=== PATIENT | female | born 1990 | race Caucasian/White ===

== ENCOUNTER 2018-04-20 19:31 | Emergency (ER) | payer OTHER ==
[2018-04-20] MEDS ORDERED: Ketorolac 30 MG/ML SDV IVPUSH ONE (19:48)
[2018-04-20] MEDS ORDERED: Sodium Chloride 0.9% 1,000 ML IV ONE (19:48)
[2018-04-20] MEDS ORDERED: Sodium Chloride 0.9% 10 ML Syringe FLUSH PRN (19:48)
[2018-04-20] MEDS ORDERED: Sodium Chloride 0.9% 2.5 ML Syringe FLUSH PRN (19:48)
--- NOTE | 2018-04-20 19:59 | EDM.PDOC ---
ED HPI GENERAL MEDICAL PROBLEM - General Chief Complaint: Flank Pain Stated Complaint: PT HAS STOMACH PAINS Time Seen by Provider: 04/20/18 19:47 - History of Present Illness INITIAL COMMENTS - FREE TEXT/NARRATIVE: HISTORY AND PHYSICAL: History of present illness: Patient is a 27-year-old white female presents concern of right flank pain this radiates to her right groin is been no fever chills nausea vomiting states she had similar episodes in the past with urinary tract infection without dysuria frequency or hesitancy she denies history of urolithiasis Review of systems: As per history of present illness and below otherwise all systems reviewed and negative. Past medical history: As per history of present illness and as reviewed below otherwise noncontributory. Surgical history: As per history of present illness and as reviewed below otherwise noncontributory. Social history: No reported history of drug or alcohol abuse. Family history: As per history of present illness and as reviewed below otherwise noncontributory. Physical exam: HEENT: Atraumatic, normocephalic, pupils reactive, negative for conjunctival pallor or scleral icterus, mucous membranes moist, throat clear, neck supple, nontender, trachea midline. Lungs: Clear to auscultation, breath sounds equal bilaterally, chest nontender. Heart: S1S2, regular, negative for clicks, rubs, or JVD. Abdomen: Soft, nondistended, nontender. Negative for masses or hepatosplenomegaly. Mild right-sided costovertebral tenderness. Pelvis: Stable nontender. Genitourinary: Deferred. Rectal: Deferred. Extremities: Atraumatic, negative for cords or calf pain. Neurovascular unremarkable. Neuro: Awake, alert, oriented. Cranial nerves II through XII unremarkable. Cerebellum unremarkable. Motor and sensory unremarkable throughout. Exam nonfocal. Diagnostics: CBC CMP UA hCG urine culture CT abdomen and pelvis Therapeutics: Normal saline 1 L bolus Toradol 30 mg IV Impression: #1 right flank pain Definitive disposition and diagnosis as appropriate pending reevaluation and review of above. - Related Data Allergies Allergy/AdvReac Type Severity Reaction Status Date / Time No Known Allergies Allergy Verified 04/20/18 20:15 Home Meds: Home Meds Pantoprazole Sodium 80 mg PO DAILY 04/20/18 [History] ED ROS GENERAL - Review of Systems Review Of Systems: ROS reveals no pertinent complaints other than HPI. ED EXAM, GENERAL - Physical Exam Exam: See Below (dictation) Course - Vital Signs Last Recorded V/S: Last Vital Signs Temp 36.6 C 04/20/18 19:31 Pulse 89 04/20/18 19:31 Resp 18 04/20/18 19:31 BP 128/79 04/20/18 19:31 Pulse Ox 98 04/20/18 19:31 - Orders/Labs/Meds Orders: Active Orders 24 hr Category Date Time Status Abdomen Pelvis wo Cont [CT] Stat Exams 04/20/18 19:48 Taken CULTURE URINE [RM] Stat Lab 04/20/18 19:49 Ordered UA W/MICROSCOPIC [URIN] Stat Lab 04/20/18 19:49 Ordered Sodium Chloride 0.9% [Saline Flush] Med 04/20/18 19:48 Active 10 ml FLUSH ASDIRECTED PRN Sodium Chloride 0.9% [Saline Flush] Med 04/20/18 19:48 Active 2.5 ml FLUSH ASDIRECTED PRN Saline Lock Insert [OM.PC] Stat Oth 04/20/18 19:47 Ordered Medication Orders Sodium Chloride (Saline Flush) 10 ml FLUSH ASDIRECTED PRN PRN Reason: Keep Vein Open Sodium Chloride (Saline Flush) 2.5 ml FLUSH ASDIRECTED PRN PRN Reason: Keep Vein Open Labs: Laboratory Tests 04/20/18 04/20/18 04/20/18 Range/Units 19:49 20:00 20:00 WBC 9.45 (4.0-11.0) K/uL RBC 4.66 (4.30-5.90) M/uL Hgb 14.0 (12.0-16.0) g/dL Hct 42.3 (36.0-46.0) % MCV 90.8 (80.0-98.0) fL MCH 30.0 (27.0-32.0) pg MCHC 33.1 (31.0-37.0) g/dL RDW Std Deviation 41.3 (28.0-62.0) fl RDW Coeff of Sarah 13 (11.0-15.0) % Plt Count 257 (150-400) K/uL MPV 10.20 (7.40-12.00) fL Neut % (Auto) 61.1 (48.0-80.0) % Lymph % (Auto) 29.7 (16.0-40.0) % [place] % (Auto) 6.9 (0.0-15.0) % Eos % (Auto) 2.1 (0.0-7.0) % Baso % (Auto) 0.2 (0.0-1.5) % Neut # (Auto) 5.8 H (1.4-5.7) K/uL Lymph # (Auto) 2.8 H (0.6-2.4) K/uL [place] # (Auto) 0.7 (0.0-0.8) K/uL Eos # (Auto) 0.2 (0.0-0.7) K/uL Baso # (Auto) 0.0 (0.0-0.1) K/uL Nucleated RBC % 0.0 /100WBC Nucleated RBCs # 0 K/uL Sodium 139 (136-145) mmol/L Potassium 3.4 L (3.5-5.1) mmol/L Chloride 105 (98-107) mmol/L Carbon Dioxide 29.6 (21.0-32.0) mmol/L BUN 7 (7.0-18.0) mg/dL Creatinine 0.8 (0.6-1.0) mg/dL Est Cr Clr Drug Dosing 74.53 mL/min Estimated GFR (MDRD) > 60.0 ml/min Glucose 92 (74-106) mg/dL Calcium 9.1 (8.5-10.1) mg/dL Total Bilirubin 0.3 (0.2-1.0) mg/dL AST 18 (15-37) IU/L ALT 35 (14-63) IU/L Alkaline Phosphatase 59 (46-116) U/L Total Protein 7.9 (6.4-8.2) g/dL Albumin 4.3 (3.4-5.0) g/dL Globulin 3.6 H (2.0-3.5) g/dL Albumin/Globulin Ratio 1.2 L (1.3-2.8) HCG, Qual (NEG) Urine Color YELLOW Urine Appearance HAZY Urine pH 6.0 (5.0-8.0) Ur Specific [place] >= 1.030 (1.001-1.035) Urine Protein NEGATIVE (NEGATIVE) mg/dL Urine Glucose (UA) NEGATIVE (NEGATIVE) mg/dL Urine Ketones NEGATIVE (NEGATIVE) mg/dL Urine Occult Blood TRACE-INTACT (NEGATIVE) Urine Nitrite NEGATIVE (NEGATIVE) Urine Bilirubin NEGATIVE (NEGATIVE) Urine Urobilinogen 0.2 (<2.0) EU/dL Ur Leukocyte Esterase NEGATIVE (NEGATIVE) Urine RBC 0-2 (0-2/HPF) Urine WBC 0-4 (0-5/HPF) Ur Epithelial Cells MODERATE (NONE-FEW) Urine Bacteria FEW (NEGATIVE) Urine Mucus LIGHT (NONE-MOD) 04/20/18 Range/Units 20:00 WBC (4.0-11.0) K/uL RBC (4.30-5.90) M/uL Hgb (12.0-16.0) g/dL Hct (36.0-46.0) % MCV (80.0-98.0) fL MCH (27.0-32.0) pg MCHC (31.0-37.0) g/dL RDW Std Deviation (28.0-62.0) fl RDW Coeff of Sarah (11.0-15.0) % Plt Count (150-400) K/uL MPV (7.40-12.00) fL Neut % (Auto) (48.0-80.0) % Lymph % (Auto) (16.0-40.0) % [place] % (Auto) (0.0-15.0) % Eos % (Auto) (0.0-7.0) % Baso % (Auto) (0.0-1.5) % Neut # (Auto) (1.4-5.7) K/uL Lymph # (Auto) (0.6-2.4) K/uL [place] # (Auto) (0.0-0.8) K/uL Eos # (Auto) (0.0-0.7) K/uL Baso # (Auto) (0.0-0.1) K/uL Nucleated RBC % /100WBC Nucleated RBCs # K/uL Sodium (136-145) mmol/L Potassium (3.5-5.1) mmol/L Chloride (98-107) mmol/L Carbon Dioxide (21.0-32.0) mmol/L BUN (7.0-18.0) mg/dL Creatinine (0.6-1.0) mg/dL Est Cr Clr Drug Dosing mL/min Estimated GFR (MDRD) ml/min Glucose (74-106) mg/dL Calcium (8.5-10.1) mg/dL Total Bilirubin (0.2-1.0) mg/dL AST (15-37) IU/L ALT (14-63) IU/L Alkaline Phosphatase (46-116) U/L Total Protein (6.4-8.2) g/dL Albumin (3.4-5.0) g/dL Globulin (2.0-3.5) g/dL Albumin/Globulin Ratio (1.3-2.8) HCG, Qual NEGATIVE (NEG) Urine Color Urine Appearance Urine pH (5.0-8.0) Ur Specific [place] (1.001-1.035) Urine Protein (NEGATIVE) mg/dL Urine Glucose (UA) (NEGATIVE) mg/dL Urine Ketones (NEGATIVE) mg/dL Urine Occult Blood (NEGATIVE) Urine Nitrite (NEGATIVE) Urine Bilirubin (NEGATIVE) Urine Urobilinogen (<2.0) EU/dL Ur Leukocyte Esterase (NEGATIVE) Urine RBC (0-2/HPF) Urine WBC (0-5/HPF) Ur Epithelial Cells (NONE-FEW) Urine Bacteria (NEGATIVE) Urine Mucus (NONE-MOD) Meds: Medications Generic Name Dose Route Start Last Admin Trade Name Freq PRN Reason Stop Dose Admin Sodium Chloride 10 ml 04/20/18 19:48 Saline Flush FLUSH ASDIRECTED PRN Keep Vein Open Sodium Chloride 2.5 ml 04/20/18 19:48 Saline Flush FLUSH ASDIRECTED PRN Keep Vein Open Discontinued Medications Generic Name Dose Route Start Last Admin Trade Name Freq PRN Reason Stop Dose Admin Sodium Chloride 1,000 mls @ 999 mls/hr 04/20/18 19:48 04/20/18 20:14 Normal Saline IV 04/20/18 20:48 999 mls/hr STAT ONE Administration Ketorolac Tromethamine 30 mg 04/20/18 19:48 04/20/18 20:14 Toradol IVPUSH 04/20/18 19:49 30 mg ONETIME ONE Administration Departure - Departure Time of Disposition: 22:01 Disposition: Home, Self-Care 01 Condition: Good Clinical Impression: Flank pain - Discharge Information *PRESCRIPTION DRUG MONITORING PROGRAM REVIEWED*: Not Applicable *COPY OF PRESCRIPTION DRUG MONITORING REPORT IN PATIENT TYRON: Not Applicable Referrals: PCP,None [Primary Care Provider] - Forms: ED Department Discharge Additional Instructions: The following information is given to patients seen in the emergency department who are being discharged to home. This information is to outline your options for follow-up care. We provide all patients seen in our emergency department with a follow-up referral. The need for follow-up, as well as the timing and circumstances, are variable depending upon the specifics of your emergency department visit. If you don't have a primary care physician on staff, we will provide you with a referral. We always advise you to contact your personal physician following an emergency department visit to inform them of the circumstance of the visit and for follow-up with them and/or the need for any referrals to a consulting specialist. The emergency department will also refer you to a specialist when appropriate. This referral assures that you have the opportunity for followup care with a specialist. All of these measure are taken in an effort to provide you with optimal care, which includes your followup. Under all circumstances we always encourage you to contact your private physician who remains a resource for coordinating your care. When calling for followup care, please make the office aware that this follow-up is from your recent emergency room visit. If for any reason you are refused follow-up, please contact the [facility] emergency department at and asked to speak to the emergency department charge nurse. Cipro was prescribed Motrin/Tylenol as directed push fluids follow private medical doctor as needed as discussed and return as needed as discussed - My Orders Last 24 Hours: My Active Orders 04/20/18 19:47 Saline Lock Insert [OM.PC] Stat 04/20/18 19:48 Abdomen Pelvis wo Cont [CT] Stat Sodium Chloride 0.9% [Saline Flush] 10 ml FLUSH ASDIRECTED PRN Sodium Chloride 0.9% [Saline Flush] 2.5 ml FLUSH ASDIRECTED PRN 04/20/18 19:49 CULTURE URINE [RM] Stat UA W/MICROSCOPIC [URIN] Stat - Assessment/Plan Last 24 Hours: My Active Orders 04/20/18 19:47 Saline Lock Insert [OM.PC] Stat 04/20/18 19:48 Abdomen Pelvis wo Cont [CT] Stat Sodium Chloride 0.9% [Saline Flush] 10 ml FLUSH ASDIRECTED PRN Sodium Chloride 0.9% [Saline Flush] 2.5 ml FLUSH ASDIRECTED PRN 04/20/18 19:49 CULTURE URINE [RM] Stat UA W/MICROSCOPIC [URIN] Stat
[2018-04-20 20:34] LABS: CHLORIDE,CL 105 mmol/L (98-107); SODIUM,NA 139 mmol/L (136-145)
--- NOTE | 2018-04-22 14:05 | CT ---
EXAM DATE: 04/20/18 PATIENT'S AGE: 27 Patient: BAN RICE Facility: [place], [place] Site . Site : 1990 Study: CT Abdomen/Pelvis [id number]/25/2018 9:40:02 PM Ordering Physician: Awilda Dixon Final Report: INDICATION: right flank pain HISTORY: Right flank pain. COMPARISON: None. TECHNIQUE: CT of the abdomen and pelvis. No intravenous contrast. Coronal/sagittal reconstruction images. FINDINGS: Lung bases: There is no pleural or pericardial effusion. The heart size is normal. The lung bases demonstrate no acute airspace disease. There is no basilar pneumothorax. Abdomen/pelvis: No solid hepatic mass. No dilation of intrahepatic biliary radicals. No perihepatic ascites. No inflammatory changes about the gallbladder. The spleen size is normal. There is no adrenal mass. There is no pancreatic mass or pancreatic duct dilation. No glandular atrophy. No hydronephrosis. There are no perinephric inflammatory changes. There is no obstructive urolith. The extraperitoneal space of [place] is clear. There is an IUD, which appears appropriately positioned in the pelvis. There is no adnexal mass. No free air. No free fluid. No wall thickening within the small bowel or colon. There is no perienteric edema. There is no transition point to indicate a mechanical small bowel or colonic obstruction. No evidence for appendicitis. No abdominal aortic aneurysm. No adenopathy is seen by size criteria in the pelvis, retroperitoneum , gastrohepatic ligament, small bowel mesentery. The bone windows demonstrate no suspicious lytic or blastic bone lesions. Small sclerotic lesion in the left iliac bone, image 93, series 201, and is likely a benign bone island. This measures 7-8 mm in dimension. On sagittal reconstruction images, the vertebral body heights and alignment are preserved. IMPRESSION: 1. There is no obstructive urolith, hydronephrosis, or perinephric fluid collection. 2. No findings on CT to indicate acute appendicitis. 3. IUD, which appears appropriately positioned in the uterine corpus. No adnexal mass. 4. No abdominal/pelvic lymphadenopathy. Dictated by Robbie Black MD @ 04/20/2018 9:48:02 PM Please note that all CT scans at this facility use dose modulation, iterative reconstruction, and/or weight-based dosing when appropriate to reduce radiation dose to as low as reasonably achievable. Dictated by: Robbie Black MD @ 04/20/2018 21:48:20 (Electronic Signature) Report Signed by Proxy. [facility]
== END 2018-04-20 22:10 | disposition home or self-care (01) ==
LOC: MW.ED 19:31
DX: R10.9 Unspecified abdominal pain (principal)
CPT/HCPCS: 36415; 74176; 80053; 81001; 84703; 85025; 87086; 96361; 96374; 99284; J1885; J7040

== ENCOUNTER 2019-04-13 06:49 | Emergency (ER) | payer SELFPAY ==
[2019-04-13] MEDS ORDERED: Ondansetron 4 MG/2 ML SDV IVPUSH ONE (07:04)
[2019-04-13] MEDS ORDERED: Sodium Chloride 0.9% 1,000 ML IV ONE (07:04)
--- NOTE | 2019-04-13 07:05 | EDM.PDOC ---
ED HPI GENERAL MEDICAL PROBLEM - General Stated Complaint: VOMITTING Time Seen by Provider: 04/13/19 07:04 Source of Information: Reports: Patient - History of Present Illness INITIAL COMMENTS - FREE TEXT/NARRATIVE: HISTORY AND PHYSICAL: History of present illness: Patient presents with constipation diarrhea vomiting, she has a history of irritable bowel syndrome and was scheduled for colonoscopy previously was to [place] did not receive colonoscopy She does have symptoms recently more loose stools over the last 3 months as well as vomiting associated with greasy meals this began Sunday the last round after eating beef and been very does Sunday night she awoke Sunday with right upper quadrant pain and vomiting multiple loose stools She is in no distress at current she has no fever nausea vomiting has not had a bowel movement today no chest pain shortness breath headache dizziness palpitation no bowel or urine symptoms ] Patient generally takes Prilosec [id number] Review of systems: As per history of present illness and below otherwise all systems reviewed and negative. Past medical history: As per history of present illness and as reviewed below otherwise noncontributory. Surgical history: As per history of present illness and as reviewed below otherwise noncontributory. Social history: No reported history of drug or alcohol abuse. Family history: As per history of present illness and as reviewed below otherwise noncontributory. Physical exam: HEENT: Atraumatic, normocephalic, pupils reactive, negative for conjunctival pallor or scleral icterus, mucous membranes moist, throat clear, neck supple, nontender, trachea midline. Lungs: Clear to auscultation, breath sounds equal bilaterally, chest nontender. Heart: S1S2, regular, negative for clicks, rubs, or JVD. Abdomen: Soft, nondistended, nontender. Negative for masses or hepatosplenomegaly. Negative for costovertebral tenderness. Pelvis: Stable nontender. Genitourinary: Deferred. Rectal: Deferred. Extremities: Atraumatic, negative for cords or calf pain. Neurovascular unremarkable. Neuro: Awake, alert, oriented. Cranial nerves II through XII unremarkable. Cerebellum unremarkable. Motor and sensory unremarkable throughout. Exam nonfocal. Diagnostics: [CBC CMP UA hCG troponin lipase ] right upper quadrant ultrasound Abdomen flat and upright plain films Therapeutics: [Normal saline Zofran Proton X Omeprazole Zofran [place] diet Patient referred to general surgery for consideration of HIDA scan and/or endoscopy ] Impression: [Vomiting] Cannot rule out gallbladder involvemen Patient previously considered for colonoscopy Occasion noncompliance with omeprazole Chronic history of baseline Definitive disposition and diagnosis as appropriate pending reevaluation and review of above. - Related Data Allergies Allergy/AdvReac Type Severity Reaction Status Date / Time No Known Allergies Allergy Verified 04/13/19 07:07 Home Meds: Home Meds . [No Known Home Meds] 04/13/19 [History] Past Medical History Gastrointestinal History: Reports: GERD Psychiatric History: Reports: Anxiety, Depression Endocrine/Metabolic History: Reports: Obesity/BMI 30+ Social & Family History - Family History Family Medical History: Noncontributory ED ROS GENERAL - Review of Systems Review Of Systems: See Below ED EXAM, GENERAL - Physical Exam Exam: See Below Course - Vital Signs Last Recorded V/S: Last Vital Signs Temp 96.4 F 04/13/19 07:04 Pulse 89 04/13/19 07:04 Resp 18 04/13/19 07:04 BP 120/86 04/13/19 07:04 Pulse Ox 95 04/13/19 07:04 - Orders/Labs/Meds Labs: Laboratory Tests 04/13/19 04/13/19 04/13/19 Range/Units 07:18 07:18 07:58 WBC 7.21 (4.0-11.0) K/uL RBC 4.85 (4.30-5.90) M/uL Hgb 14.7 (12.0-16.0) g/dL Hct 45.5 (36.0-46.0) % MCV 93.8 (80.0-98.0) fL MCH 30.3 (27.0-32.0) pg MCHC 32.3 (31.0-37.0) g/dL RDW Std Deviation 43.2 (28.0-62.0) fl RDW Coeff of Sarah 13 (11.0-15.0) % Plt Count 243 (150-400) K/uL MPV 10.00 (7.40-12.00) fL Neut % (Auto) 57.2 (48.0-80.0) % Lymph % (Auto) 29.1 (16.0-40.0) % [place] % (Auto) 7.4 (0.0-15.0) % Eos % (Auto) 5.7 (0.0-7.0) % Baso % (Auto) 0.6 (0.0-1.5) % Neut # (Auto) 4.1 (1.4-5.7) K/uL Lymph # (Auto) 2.1 (0.6-2.4) K/uL [place] # (Auto) 0.5 (0.0-0.8) K/uL Eos # (Auto) 0.4 (0.0-0.7) K/uL Baso # (Auto) 0.0 (0.0-0.1) K/uL Nucleated RBC % 0.0 /100WBC Nucleated RBCs # 0 K/uL Sodium 143 (136-145) mmol/L Potassium 3.3 L (3.5-5.1) mmol/L Chloride 108 H (98-107) mmol/L Carbon Dioxide 23.3 (21.0-32.0) mmol/L BUN 8 (7.0-18.0) mg/dL Creatinine 0.9 (0.6-1.0) mg/dL Est Cr Clr Drug Dosing 65.65 mL/min Estimated GFR (MDRD) > 60.0 ml/min Glucose 105 (74-106) mg/dL Calcium 9.3 (8.5-10.1) mg/dL Total Bilirubin 0.3 (0.2-1.0) mg/dL AST 25 (15-37) IU/L ALT 38 (14-63) IU/L Alkaline Phosphatase 58 (46-116) U/L Troponin I < 0.050 (0.000-0.056) ng/mL Total Protein 7.2 (6.4-8.2) g/dL Albumin 3.4 (3.4-5.0) g/dL Globulin 3.8 (2.6-4.0) g/dL Albumin/Globulin Ratio 0.9 (0.9-1.6) Lipase 170 (73-393) U/L Urine Color YELLOW Urine Appearance SLT CLOUDY Urine pH 6.0 (5.0-8.0) Ur Specific [place] 1.015 (1.001-1.035) Urine Protein NEGATIVE (NEGATIVE) mg/dL Urine Glucose (UA) NEGATIVE (NEGATIVE) mg/dL Urine Ketones NEGATIVE (NEGATIVE) mg/dL Urine Occult Blood NEGATIVE (NEGATIVE) Urine Nitrite NEGATIVE (NEGATIVE) Urine Bilirubin NEGATIVE (NEGATIVE) Urine Urobilinogen 0.2 (<2.0) EU/dL Ur Leukocyte Esterase NEGATIVE (NEGATIVE) Urine HCG, Qual (NEGATIVE) 04/13/19 Range/Units 07:58 WBC (4.0-11.0) K/uL RBC (4.30-5.90) M/uL Hgb (12.0-16.0) g/dL Hct (36.0-46.0) % MCV (80.0-98.0) fL MCH (27.0-32.0) pg MCHC (31.0-37.0) g/dL RDW Std Deviation (28.0-62.0) fl RDW Coeff of Sarah (11.0-15.0) % Plt Count (150-400) K/uL MPV (7.40-12.00) fL Neut % (Auto) (48.0-80.0) % Lymph % (Auto) (16.0-40.0) % [place] % (Auto) (0.0-15.0) % Eos % (Auto) (0.0-7.0) % Baso % (Auto) (0.0-1.5) % Neut # (Auto) (1.4-5.7) K/uL Lymph # (Auto) (0.6-2.4) K/uL [place] # (Auto) (0.0-0.8) K/uL Eos # (Auto) (0.0-0.7) K/uL Baso # (Auto) (0.0-0.1) K/uL Nucleated RBC % /100WBC Nucleated RBCs # K/uL Sodium (136-145) mmol/L Potassium (3.5-5.1) mmol/L Chloride (98-107) mmol/L Carbon Dioxide (21.0-32.0) mmol/L BUN (7.0-18.0) mg/dL Creatinine (0.6-1.0) mg/dL Est Cr Clr Drug Dosing mL/min Estimated GFR (MDRD) ml/min Glucose (74-106) mg/dL Calcium (8.5-10.1) mg/dL Total Bilirubin (0.2-1.0) mg/dL AST (15-37) IU/L ALT (14-63) IU/L Alkaline Phosphatase (46-116) U/L Troponin I (0.000-0.056) ng/mL Total Protein (6.4-8.2) g/dL Albumin (3.4-5.0) g/dL Globulin (2.6-4.0) g/dL Albumin/Globulin Ratio (0.9-1.6) Lipase (73-393) U/L Urine Color Urine Appearance Urine pH (5.0-8.0) Ur Specific [place] (1.001-1.035) Urine Protein (NEGATIVE) mg/dL Urine Glucose (UA) (NEGATIVE) mg/dL Urine Ketones (NEGATIVE) mg/dL Urine Occult Blood (NEGATIVE) Urine Nitrite (NEGATIVE) Urine Bilirubin (NEGATIVE) Urine Urobilinogen (<2.0) EU/dL Ur Leukocyte Esterase (NEGATIVE) Urine HCG, Qual NEGATIVE (NEGATIVE) Meds: Medications Discontinued Medications Generic Name Dose Route Start Last Admin Trade Name Freq PRN Reason Stop Dose Admin Sodium Chloride 1,000 mls @ 999 mls/hr 04/13/19 07:04 04/13/19 07:17 Normal Saline IV 04/13/19 08:04 999 mls/hr STAT ONE Administration Ondansetron HCl 8 mg 04/13/19 07:04 04/13/19 07:17 Zofran IVPUSH 04/13/19 07:05 8 mg ONETIME ONE Administration Pantoprazole Sodium 80 mg 04/13/19 07:43 04/13/19 08:02 Protonix Iv IVPUSH 04/13/19 07:44 80 mg .BOLUS ONE Administration Sodium Chloride 20 ml 04/13/19 07:51 04/13/19 08:02 Normal Saline IV 04/13/19 07:52 20 ml STAT ONE Administration Departure - Departure Time of Disposition: 09:10 Disposition: Home, Self-Care 01 Condition: Good Clinical Impression: Nausea vomiting and diarrhea - Discharge Information Referrals: PCP,None [Primary Care Provider] - Additional Instructions: Medication as prescribed Return if symptoms persist or worsen [place] diet recommended avoid greasy fatty foods as discussed Follow-up with general surgery, call phone number below to schedule appropriate follow-up Surgeon for consideration of HIDA scan and/or endoscopy [facility] - General Surgery [address], [address] [place] [address] The following information is given to patients seen in the emergency department who are being discharged to home. This information is to outline your options for follow-up care. We provide all patients seen in our emergency department with a follow-up referral. The need for follow-up, as well as the timing and circumstances, are variable depending upon the specifics of your emergency department visit. If you don't have a primary care physician on staff, we will provide you with a referral. We always advise you to contact your personal physician following an emergency department visit to inform them of the circumstance of the visit and for follow-up with them and/or the need for any referrals to a consulting specialist. The emergency department will also refer you to a specialist when appropriate. This referral assures that you have the opportunity for follow-up care with a specialist. All of these measure are taken in an effort to provide you with optimal care, which includes your follow-up. Under all circumstances we always encourage you to contact your private physician who remains a resource for coordinating your care. When calling for follow-up care, please make the office aware that this follow-up is from your recent emergency room visit. If for any reason you are refused follow-up, please contact the [facility] emergency department at and asked to speak to the emergency department charge nurse.
[2019-04-13] MEDS ORDERED: Pantoprazole 40 MG Vial IVPUSH ONE (07:43)
[2019-04-13] MEDS ORDERED: Sodium Chloride 0.9% 10 ML SDV IV ONE (07:51)
[2019-04-13 07:54] LABS: CHLORIDE,CL 108 mmol/L (98-107); SODIUM,NA 143 mmol/L (136-145)
--- NOTE | 2019-04-13 08:53 | US ---
HISTORY: Abdominal pain. TECHNIQUE: Limited abdominal ultrasound. COMPARISON: Report of prior CT from 04/20/2018. FINDINGS: Pancreatic tail is obscured by bowel gas. No abnormality involving the visualized portions of pancreas. There is fatty infiltration of the liver without focal liver mass. No intrahepatic or extrahepatic blurry ductal dilatation. The extrahepatic bile duct measures 2 mm which is within normal limits. Gallbladder is normal without sludge, stones, wall thickening or pericholecystic fluid. Sonographic Montes sign is absent. No abnormality involving the right kidney. No upper abdominal ascites. IMPRESSION: 1. Normal gallbladder. 2. No biliary ductal dilatation. 3. Fatty infiltration of the liver. Dictated by Jordi John MD @ 04/13/2019 8:53:07 AM Dictated by: Jordi John MD @ 04/13/2019 08:53:11 (Electronically Signed)
--- NOTE | 2019-04-13 08:55 | CR ---
HISTORY: Abdominal pain. TECHNIQUE: Flat and upright abdominal radiographs. COMPARISON: Ultrasound 04/13/2019. FINDINGS: No free air. No small bowel obstruction. Gas and stool present within the colon to the level of rectum. Pelvic calcifications are likely phleboliths. Lung bases appear clear. IMPRESSION: No obstruction or free air. Dictated by Jordi John MD @ 04/13/2019 8:54:26 AM Dictated by: Jordi John MD @ 04/13/2019 08:54:32 (Electronically Signed)
== END 2019-04-13 09:22 | disposition home or self-care (01) ==
LOC: MW.ED 06:49
DX: R11.2 Nausea with vomiting, unspecified (principal); R19.7 Diarrhea, unspecified; Z91.14 Patient's other noncompliance with medication regimen; E66.9 Obesity, unspecified; Z68.41 Body mass index [BMI] 40.0-44.9, adult
CPT/HCPCS: 36415; 74019; 76705; 80053; 81003; 81025; 83690; 84484; 85025; 96361; 96374; 96375; 99284; C9113; J2405; J7040; J7050

== ENCOUNTER 2019-07-27 08:34 | Emergency (ER) | payer SELFPAY ==
--- NOTE | 2019-07-27 08:54 | EDM.PDOC ---
ED HPI GENERAL MEDICAL PROBLEM - General Chief Complaint: ENT Problem Stated Complaint: EAR PRESSURE/FACE SWOLLEN Time Seen by Provider: 07/27/19 08:50 - History of Present Illness INITIAL COMMENTS - FREE TEXT/NARRATIVE: HISTORY AND PHYSICAL: History of present illness: Patient 28-year-old female presents with concern of left ear pain and sinus congestion and pain she's had prior episodes in the past treated as sinusitis she denies fever chills nausea vomiting or other complaints Review of systems: As per history of present illness and below otherwise all systems reviewed and negative. Past medical history: As per history of present illness and as reviewed below otherwise noncontributory. Surgical history: As per history of present illness and as reviewed below otherwise noncontributory. Social history: No reported history of drug or alcohol abuse. Family history: As per history of present illness and as reviewed below otherwise noncontributory. Physical exam: HEENT: Atraumatic, normocephalic, pupils reactive, negative for conjunctival pallor or scleral icterus, mucous membranes moist, throat clear, neck supple, nontender, trachea midline. Left TM injected definitely reflex tenderness to percussion over her frontal and maxillary sinuses Lungs: Clear to auscultation, breath sounds equal bilaterally, chest nontender. Heart: S1S2, regular, negative for clicks, rubs, or JVD. Abdomen: Soft, nondistended, nontender. Negative for masses or hepatosplenomegaly. Negative for costovertebral tenderness. Pelvis: Stable nontender. Genitourinary: Deferred. Rectal: Deferred. Extremities: Atraumatic, negative for cords or calf pain. Neurovascular unremarkable. Neuro: Awake, alert, oriented. Cranial nerves II through XII unremarkable. Cerebellum unremarkable. Motor and sensory unremarkable throughout. Exam nonfocal. Diagnostics: None Therapeutics: None Impression: #1 left otitis media #2 sinusitis Definitive disposition and diagnosis as appropriate pending reevaluation and review of above. sinus Pain Score (Numeric/FACES): 7 - Related Data Allergies Allergy/AdvReac Type Severity Reaction Status Date / Time No Known Allergies Allergy Verified 04/13/19 07:07 Home Meds: Home Meds . [No Known Home Meds] 04/13/19 [History] Past Medical History Gastrointestinal History: Reports: GERD Psychiatric History: Reports: Anxiety, Depression Endocrine/Metabolic History: Reports: Obesity/BMI 30+ - Infectious Disease History Infectious Disease History: Reports: Chicken Pox - Past Surgical History Female Surgical History: Reports: Section Social & Family History - Family History Family Medical History: Noncontributory ED ROS GENERAL - Review of Systems Review Of Systems: Comprehensive ROS is negative, except as noted in HPI. ED EXAM, GENERAL - Physical Exam Exam: See Below (See dictation) Course - Vital Signs Last Recorded V/S: Last Vital Signs Temp 36.1 C 07/27/19 08:44 Pulse 83 07/27/19 08:44 Resp 18 07/27/19 08:44 BP 151/88 H 07/27/19 08:44 Pulse Ox 95 07/27/19 08:44 Departure - Departure Time of Disposition: 08:53 Disposition: Home, Self-Care 01 Condition: Good Clinical Impression: Otitis media, Sinusitis - Discharge Information Referrals: PCP,None [Primary Care Provider] - Additional Instructions: The following information is given to patients seen in the emergency department who are being discharged to home. This information is to outline your options for follow-up care. We provide all patients seen in our emergency department with a follow-up referral. The need for follow-up, as well as the timing and circumstances, are variable depending upon the specifics of your emergency department visit. If you don't have a primary care physician on staff, we will provide you with a referral. We always advise you to contact your personal physician following an emergency department visit to inform them of the circumstance of the visit and for follow-up with them and/or the need for any referrals to a consulting specialist. The emergency department will also refer you to a specialist when appropriate. This referral assures that you have the opportunity for followup care with a specialist. All of these measure are taken in an effort to provide you with optimal care, which includes your followup. Under all circumstances we always encourage you to contact your private physician who remains a resource for coordinating your care. When calling for followup care, please make the office aware that this follow-up is from your recent emergency room visit. If for any reason you are refused follow-up, please contact the [facility] emergency department at and asked to speak to the emergency department charge nurse. [facility] [address] [place] [id number] Augmentin as prescribed follow-up primary care and/or medical clinic above return as needed as discussed Motrin/Tylenol as directed [id number] decongestants as directed
== END 2019-07-27 09:30 | disposition home or self-care (01) ==
LOC: MW.ED 08:34
DX: H66.92 Otitis media, unspecified, left ear (principal); J32.9 Chronic sinusitis, unspecified; E66.9 Obesity, unspecified; Z68.41 Body mass index [BMI] 40.0-44.9, adult
CPT/HCPCS: 99282

== ENCOUNTER 2019-11-10 11:42 | Emergency (ER) | payer SELFPAY ==
--- NOTE | 2019-11-10 12:46 | EDM.PDOC ---
ED HPI GENERAL MEDICAL PROBLEM - General Chief Complaint: Gastrointestinal Problem Stated Complaint: STOMACH PROBLEMS Time Seen by Provider: 11/10/19 12:30 Source of Information: Reports: Patient History Limitations: Reports: No Limitations - History of Present Illness INITIAL COMMENTS - FREE TEXT/NARRATIVE: HISTORY AND PHYSICAL: History of present illness: Patient is a 29-year-old female who presents to the ED today with concern of sinus infection that is been ongoing over the past several months. Patient states that she initially was diagnosed with a sinus infection in August and was given a prescription for antibiotics. Patient states her grandma was sick so she left town and forgot her antibiotics at home. Patient states she only took 2 to 3 days worth of the antibiotics and had slight improvement of her sinus pain for a few days but stopped taking the antibiotics as she forgot them in [place] and was out of town. Patient states that her mother threw the antibiotics away because she thought they were by now. Patient states that she is continued to have sinus pain since her return from her grandma which is been over the past several months. Patient states she is also had diarrhea over the past week and has had 3-4 episodes of watery diarrhea a day but denies any other symptoms. Patient states she has a history of IBS and has had issues with diarrhea in the past but states that over the past week has had an increase in frequency of her diarrhea. Patient states she has been pushing lots of fluids to prevent dehydration. Patient denies any other symptoms or concerns. Patient denies fever, chills, chest pain, shortness of breath, or cough. Denies headache, neck stiff ness, change in vision, syncope, or near syncope. Denies nausea, vomiting, abdominal pain, constipation, or dysuria. Has not noted any blood in urine or stool. Patient has been eating and drinking appropriately. Review of systems: As per history of present illness and below otherwise all systems reviewed and negative. Past medical history: As per history of present illness and as reviewed below otherwise noncontributory. Surgical history: As per history of present illness and as reviewed below otherwise noncontributory. Social history: See social history for further information Family history: As per history of present illness and as reviewed below otherwise noncontributory. Physical exam: General: Patient is alert, oriented, and in no acute distress. Patient sitting comfortably on exam table. HEENT: Atraumatic, normocephalic, pupils equal and reactive bilaterally, negative for conjunctival pallor or scleral icterus, mucous membranes moist, TMs normal bilaterally, throat clear, neck supple, nontender, trachea midline. No drooling or trismus noted. No meningeal signs. No hot potato voice noted. Bilateral maxillary sinus tenderness to palpation. Bilateral nasal congestion. Lungs: Clear to auscultation, breath sounds equal bilaterally, chest nontender. Heart: S1S2, regular rate and rhythm without overt murmur Abdomen: Soft, nondistended, nontender. Negative for masses or hepatosplenomegaly. Negative for costovertebral tenderness. Pelvis: Stable nontender. Genitourinary: Deferred. Rectal: Deferred. Skin: Intact, warm, dry. No lesions or rashes noted. Extremities: Atraumatic, negative for cords or calf pain. Neurovascular unremarkable. Neuro: Awake, alert, oriented. Cranial nerves II through XII unremarkable. Cerebellum unremarkable. Motor and sensory unremarkable throughout. Exam nonfocal. Notes: Patient was unable to leave a stool sample today in the ED. Stool collection supplies have been provided to her to collect at home and return to our lab. Patient states she does get frequent yeast vaginitis from antibiotics in the past and is requesting Diflucan. I will provide this to patient alongside antibiotic prescription. Discussed importance for follow-up with a primary care provider. Voices understanding and is agreeable to plan of care. Denies any further questions or concerns at this time. Diagnostics: Labwork offered but patient declines Therapeutics: None Prescription: Augmentin, Diflucan, Stool studies RX Impression: Acute sinusitis, maxillary Diarrhea H/O irritable bowel syndrome Plan: 1. Take medication as prescribed. You can alternate ibuprofen and Tylenol as directed for pain and discomfort. 2. Stool collection supplies have been provided to you. Once you are able to leave a sample, return this to our lab for further testing. 3. Follow-up with a primary care provider as discussed. Return to the ED as needed and as discussed. Definitive disposition and diagnosis as appropriate pending reevaluation and review of above. abd cramping' Pain Score (Numeric/FACES): 5 - Related Data Allergies Allergy/AdvReac Type Severity Reaction Status Date / Time No Known Allergies Allergy Verified 04/13/19 07:07 Home Meds: Home Meds Amoxicillin/Potassium Clav [Augmentin 875-125 Tablet] 1 each PO BID 7 Days #14 tablet 11/10/19 [Rx] Fluconazole [Diflucan] 150 mg PO ONETIME #1 tab 11/10/19 [Rx] Past Medical History Gastrointestinal History: Reports: GERD Musculoskeletal History: Reports: Back Pain, Chronic Psychiatric History: Reports: Anxiety, Depression Endocrine/Metabolic History: Reports: Obesity/BMI 30+ - Infectious Disease History Infectious Disease History: Reports: Chicken Pox - Past Surgical History GI Surgical History: Reports: Hernia Repair/Other Female Surgical History: Reports: Section Social & Family History - Family History Family Medical History: Noncontributory - Tobacco Use Smoking Status *Q: Never Smoker - Recreational Drug Use Recreational Drug Use: No ED ROS GENERAL - Review of Systems Review Of Systems: Comprehensive ROS is negative, except as noted in HPI. ED EXAM, GENERAL - Physical Exam Exam: See Below (see dictation) Course - Vital Signs Last Recorded V/S: Last Vital Signs Temp 97.4 F 11/10/19 12:32 Pulse 85 11/10/19 12:32 Resp 18 11/10/19 12:32 BP 157/80 H 11/10/19 12:32 Pulse Ox 98 11/10/19 12:32 Departure - Departure Time of Disposition: 12:52 Disposition: Home, Self-Care 01 Clinical Impression: Acute sinusitis Qualifiers: Sinusitis location: maxillary Recurrence: not specified as recurrent Qualified Code(s): J01.00 - Acute maxillary sinusitis, unspecified Diarrhea Qualifiers: Diarrhea type: unspecified type Qualified Code(s): R19.7 - Diarrhea, unspecified - Discharge Information Prescriptions: Amoxicillin/Potassium Clav [Augmentin 875-125 Tablet] 1 each PO BID 7 Days #14 tablet Fluconazole [Diflucan] 150 mg PO ONETIME #1 tab Referrals: PCP,None [Primary Care Provider] - Forms: ED Department Discharge Additional Instructions: The following information is given to patients seen in the emergency department who are being discharged to home. This information is to outline your options for follow-up care. We provide all patients seen in our emergency department with a follow-up referral. The need for follow-up, as well as the timing and circumstances, are variable depending upon the specifics of your emergency department visit. If you don't have a primary care physician on staff, we will provide you with a referral. We always advise you to contact your personal physician following an emergency department visit to inform them of the circumstance of the visit and for follow-up with them and/or the need for any referrals to a consulting specialist. The emergency department will also refer you to a specialist when appropriate. This referral assures that you have the opportunity for follow-up care with a specialist. All of these measure are taken in an effort to provide you with optimal care, which includes your follow-up. Under all circumstances we always encourage you to contact your private physician who remains a resource for coordinating your care. When calling for follow-up care, please make the office aware that this follow-up is from your recent emergency room visit. If for any reason you are refused follow-up, please contact the Emergency Department at and asked to speak to the emergency department charge nurse. Primary Care [address] [place] [id number] [facility] [address] [place] [id number] 1. Take medication as prescribed. You can alternate ibuprofen and Tylenol as directed for pain and discomfort. 2. Stool collection supplies have been provided to you. Once you are able to leave a sample, return this to our lab for further testing. 3. Follow-up with a primary care provider as discussed. Return to the ED as needed and as discussed. Sepsis Event Note - Evaluation Sepsis Screening Result: No Definite Risk - Focused Exam Vital Signs: Vital Signs Temp Pulse Resp BP Pulse Ox 11/10/19 12:32 97.4 F 85 18 157/80 H 98 Date Exam was Performed: 11/10/19 Time Exam was Performed: 12:52
== END 2019-11-10 13:14 | disposition home or self-care (01) ==
LOC: MW.ED 11:42
DX: J01.00 Acute maxillary sinusitis, unspecified (principal); R19.7 Diarrhea, unspecified; E66.9 Obesity, unspecified
CPT/HCPCS: 99283

== ENCOUNTER 2019-12-26 12:09 | Emergency (ER) | payer SELFPAY ==
[2019-12-26] MEDS ORDERED: Sodium Chloride 0.9% 1,000 ML IV ONE (12:21)
[2019-12-26] MEDS ORDERED: Sodium Chloride 0.9% 2.5 ML Syringe FLUSH PRN (12:23)
[2019-12-26] MEDS ORDERED: Sodium Chloride 0.9% 10 ML Syringe FLUSH PRN (12:23)
--- NOTE | 2019-12-26 12:25 | EDM.PDOC ---
ED HPI GENERAL MEDICAL PROBLEM - General Chief Complaint: Respiratory Problem Stated Complaint: SOB/ PAIN IN BACK Time Seen by Provider: 12/26/19 12:13 Source of Information: Reports: Patient History Limitations: Reports: No Limitations - History of Present Illness INITIAL COMMENTS - FREE TEXT/NARRATIVE: HISTORY AND PHYSICAL: History of present illness: Patient is a 29-year-old female who presents to the emergency room today with complaints of cough, shortness of breath, pain to the upper chest and upper back. Over the past 1-2 months she has had these symptoms that have progressively gotten worse. In October she was seen at [facility] and initially treated with Augmentin for a sinus infection. She was reevaluated a week later as the coughing symptoms seemed to worsen. She was given a course of oral antibiotic given steroids which she believes helped for approximately one week but symptoms returned shortly after. She was tested for COVID-19, this was negative. She attempted to get into the clinic again today, they were concerned that she has a PE and wanted her to get a CT scan and recommended she come to the emergency room for evaluation. She is not on any hormone therapy. No recent travel, has not been sitting for long periods of time. No history of any blood/ clotting disorders. States the anterior chest and upper back pain is worse with coughing and taking in deep breaths. Pain is not exacerbated with physical activity and typically not at rest. Patient denies any fever, chills, headache, change in vision, syncope or near syncope. Denies any abdominal pain, nausea, vomiting, diarrhea, constipation or dysuria. Has not noted any blood in urine or stool. Patient has been eating and drinking appropriately. History of smoking 13+ years; quit 4 years ago. No previous lung problems. Review of systems: As per history of present illness and below otherwise all systems reviewed and negative. Past medical history: As per history of present illness and as reviewed below otherwise noncontributory. Surgical history: As per history of present illness and as reviewed below otherwise noncontributory. Social history: See social history for further information Family history: As per history of present illness and as reviewed below otherwise noncontributory. Physical exam: General: Well-developed and well-nourished 29-year-old female. Alert and oriented. Nontoxic appearing and in no acute distress. HEENT: Atraumatic, normocephalic, pupils equal and reactive bilaterally, negative for conjunctival pallor or scleral icterus, mucous membranes moist, nontender, trachea midline. No drooling or trismus noted. No meningeal signs. No hot potato voice noted. Lungs: Clear to auscultation, breath sounds equal bilaterally, chest nontender. Heart: S1S2, regular rate and rhythm without overt murmur Abdomen: Soft, nondistended, nontender. Negative for masses or hepatosplenomegaly. Negative for costovertebral tenderness. Skin: Intact, warm, dry. No lesions or rashes noted. Extremities: Atraumatic, moves all extremities per self without difficulty or deficits, negative for cords or calf pain. Neurovascular unremarkable. Neuro: Awake, alert, oriented. Cranial nerves II through XII unremarkable. Cerebellum unremarkable. Motor and sensory unremarkable throughout. Exam nonfocal. Notes: Patient reports that she has not had any lab work done other than the COVID-19 ( negative). Has had two previous chest x-rays. Will move forward with the CT of chest and cardiac work-up. All diagnostics are unremarkable. Physical exam is normal. VSS. We discussed the need for follow-up. Pro-Air inhaler was prescribed by PCP just today; she has to pick it up. Requesting something for her nasal drainage and sinus pressure. Has been taking OTC Zyzol and Clairitin without relief since August 14. We discussed Singulair, she would like to try this. Supportive care measures were reviewed and discussed. Voices understanding and is agreeable to plan of care. Denies any further questions or concerns at this time. Diagnostics: CBC, CMP, HCG, CT Chest Therapeutics: IV fluids Prescription: Singulair Impression: Atypical Chest Pain Plan: 1. Today's lab work and CT of your chest are within normal limits. You may use the pro-air inhaler as needed for symptomatic relief. 2. Follow up with primary care provider- may need referral to a industrial ecology technician for further care. 3. Return to the ED as needed and as discussed. Definitive disposition and diagnosis as appropriate pending reevaluation and review of above. Duration: Week(s): Location: Reports: Chest, Back - Related Data Allergies Allergy/AdvReac Type Severity Reaction Status Date / Time No Known Allergies Allergy Verified 12/26/19 12:21 Home Meds: Home Meds Montelukast [Singulair] 10 mg PO DAILY #30 tab 12/26/19 [Rx] Past Medical History Gastrointestinal History: Reports: GERD Musculoskeletal History: Reports: Back Pain, Chronic Psychiatric History: Reports: Anxiety, Depression Endocrine/Metabolic History: Reports: Obesity/BMI 30+ - Infectious Disease History Infectious Disease History: Reports: Chicken Pox - Past Surgical History GI Surgical History: Reports: Hernia Repair/Other Female Surgical History: Reports: Section Social & Family History - Family History Family Medical History: Noncontributory ED ROS GENERAL - Review of Systems Review Of Systems: Comprehensive ROS is negative, except as noted in HPI. ED EXAM, GENERAL - Physical Exam Exam: See Below (See dictation) Course - Vital Signs Last Recorded V/S: Last Vital Signs Temp 96.0 F L 12/26/19 12:19 Pulse 78 12/26/19 13:09 Resp 18 12/26/19 12:19 BP 113/70 12/26/19 13:09 Pulse Ox 98 12/26/19 13:09 - Orders/Labs/Meds Orders: Active Orders 24 hr Category Date Time Status EKG Documentation Completion [RC] STAT Care 12/26/19 12:21 Active Sodium Chloride 0.9% [Normal Saline] 1,000 ml Med 12/26/19 12:21 Active IV STAT Sodium Chloride 0.9% [Saline Flush] Med 12/26/19 12:23 Active 10 ml FLUSH ASDIRECTED PRN Sodium Chloride 0.9% [Saline Flush] Med 12/26/19 12:23 Active 2.5 ml FLUSH ASDIRECTED PRN Saline Lock Insert [OM.PC] Stat Oth 12/26/19 12:23 Ordered Medication Orders Sodium Chloride (Normal Saline) 1,000 mls @ 150 mls/hr IV STAT ONE Stop: 12/26/19 19:00 Last Admin: 12/26/19 12:39 Dose: 150 mls/hr Sodium Chloride (Saline Flush) 10 ml FLUSH ASDIRECTED PRN PRN Reason: Keep Vein Open Last Admin: 12/26/19 12:39 Dose: 10 ml Sodium Chloride (Saline Flush) 2.5 ml FLUSH ASDIRECTED PRN PRN Reason: Keep Vein Open Last Admin: 12/26/19 12:39 Dose: 2.5 ml Labs: Laboratory Tests 12/26/19 12/26/19 12/26/19 Range/Units 12:30 12:30 12:30 WBC 8.85 (4.0-11.0) K/uL RBC 4.94 (4.30-5.90) M/uL Hgb 15.0 (12.0-16.0) g/dL Hct 46.4 H (36.0-46.0) % MCV 93.9 (80.0-98.0) fL MCH 30.4 (27.0-32.0) pg MCHC 32.3 (31.0-37.0) g/dL RDW Std Deviation 43.9 (28.0-62.0) fl RDW Coeff of Sarah 13 (11.0-15.0) % Plt Count 266 (150-400) K/uL MPV 10.00 (7.40-12.00) fL Neut % (Auto) 66.5 (48.0-80.0) % Lymph % (Auto) 21.1 (16.0-40.0) % Barry % (Auto) 9.9 (0.0-15.0) % Eos % (Auto) 2.0 (0.0-7.0) % Baso % (Auto) 0.5 (0.0-1.5) % Neut # (Auto) 5.9 H (1.4-5.7) K/uL Lymph # (Auto) 1.9 (0.6-2.4) K/uL Barry # (Auto) 0.9 H (0.0-0.8) K/uL Eos # (Auto) 0.2 (0.0-0.7) K/uL Baso # (Auto) 0.0 (0.0-0.1) K/uL Nucleated RBC % 0.0 /100WBC Nucleated RBCs # 0 K/uL Sodium 140 (136-145) mmol/L Potassium 4.0 (3.5-5.1) mmol/L Chloride 104 (98-107) mmol/L Carbon Dioxide 25.3 (21.0-32.0) mmol/L BUN 15 (7.0-18.0) mg/dL Creatinine 0.8 (0.6-1.0) mg/dL Est Cr Clr Drug Dosing 73.19 mL/min Estimated GFR (MDRD) > 60.0 ml/min Glucose 87 (74-106) mg/dL Calcium 9.4 (8.5-10.1) mg/dL Total Bilirubin 0.6 (0.2-1.0) mg/dL AST 29 (15-37) IU/L ALT 49 (14-63) IU/L Alkaline Phosphatase 58 (46-116) U/L Troponin I < 0.050 (0.000-0.056) ng/mL Total Protein 7.9 (6.4-8.2) g/dL Albumin 4.2 (3.4-5.0) g/dL Globulin 3.7 (2.6-4.0) g/dL Albumin/Globulin Ratio 1.1 (0.9-1.6) HCG, Qual NEGATIVE (NEG) Meds: Medications Generic Name Dose Route Start Last Admin Trade Name Freq PRN Reason Stop Dose Admin Sodium Chloride 1,000 mls @ 150 mls/hr 12/26/19 12:21 12/26/19 12:39 Normal Saline IV 12/26/19 19:00 150 mls/hr STAT ONE Administration Sodium Chloride 10 ml 12/26/19 12:23 12/26/19 12:39 Saline Flush FLUSH 10 ml ASDIRECTED PRN Administration Keep Vein Open Sodium Chloride 2.5 ml 12/26/19 12:23 12/26/19 12:39 Saline Flush FLUSH 2.5 ml ASDIRECTED PRN Administration Keep Vein Open Discontinued Medications Generic Name Dose Route Start Last Admin Trade Name Freq PRN Reason Stop Dose Admin Iopamidol 50 ml 12/26/19 13:34 12/26/19 13:38 Isovue Multipack-370 (76%) IVPUSH 12/26/19 13:35 50 ml ONETIME ONE Administration Departure - Departure Time of Disposition: 14:09 Disposition: Home, Self-Care 01 Clinical Impression: Atypical chest pain - Discharge Information Prescriptions: Montelukast [Singulair] 10 mg PO DAILY #30 tab Instructions: Nonspecific Chest Pain, Adult, [id number] Referrals: Lai Combs MD [Primary Care Provider] - Forms: ED Department Discharge Additional Instructions: The following information is given to patients seen in the emergency department who are being discharged to home. This information is to outline your options for follow-up care. We provide all patients seen in our emergency department with a follow-up referral. The need for follow-up, as well as the timing and circumstances, are variable depending upon the specifics of your emergency department visit. If you don't have a primary care physician on staff, we will provide you with a referral. We always advise you to contact your personal physician following an emergency department visit to inform them of the circumstance of the visit and for follow-up with them and/or the need for any referrals to a consulting specialist. The emergency department will also refer you to a specialist when appropriate. This referral assures that you have the opportunity for follow-up care with a specialist. All of these measure are taken in an effort to provide you with optimal care, which includes your follow-up. Under all circumstances we always encourage you to contact your private physician who remains a resource for coordinating your care. When calling for follow-up care, please make the office aware that this follow-up is from your recent emergency room visit. If for any reason you are refused follow-up, please contact the [facility] Emergency Department at and asked to speak to the emergency department charge nurse. [facility] [address] [place] [address] [address] 1. Today's lab work and CT of your chest are within normal limits. You may use the pro-air inhaler as needed for symptomatic relief. 2. Follow up with primary care provider- may need referral to a industrial ecology technician for further care. 3. Return to the ED as needed and as discussed. Sepsis Event Note - Evaluation Sepsis Screening Result: Possible Sepsis Risk - Focused Exam Vital Signs: Vital Signs Temp Pulse Resp BP Pulse Ox 12/26/19 13:09 78 113/70 98 12/26/19 12:19 96.0 F L 91 18 153/97 H 97 Date Exam was Performed: 12/26/19 Time Exam was Performed: 14:17 - My Orders Last 24 Hours: My Active Orders 12/26/19 12:21 EKG Documentation Completion [RC] STAT Sodium Chloride 0.9% [Normal Saline] 1,000 ml IV STAT 12/26/19 12:23 Sodium Chloride 0.9% [Saline Flush] 10 ml FLUSH ASDIRECTED PRN Sodium Chloride 0.9% [Saline Flush] 2.5 ml FLUSH ASDIRECTED PRN Saline Lock Insert [OM.PC] Stat - Assessment/Plan Last 24 Hours: My Active Orders 12/26/19 12:21 EKG Documentation Completion [RC] STAT Sodium Chloride 0.9% [Normal Saline] 1,000 ml IV STAT 12/26/19 12:23 Sodium Chloride 0.9% [Saline Flush] 10 ml FLUSH ASDIRECTED PRN Sodium Chloride 0.9% [Saline Flush] 2.5 ml FLUSH ASDIRECTED PRN Saline Lock Insert [OM.PC] Stat
[2019-12-26 13:10] LABS: BLOOD UREA NITROGEN,BUN 15 mg/dL (7.0-18.0); CARBON DIOXIDE,CO2 25.3 mmol/L (21.0-32.0); CHLORIDE,CL 104 mmol/L (98-107); GLUCOSE RANDOM 87 mg/dL (74-106); SODIUM,NA 140 mmol/L (136-145)
[2019-12-26] MEDS ORDERED: Iopamidol 755 MG/ML 200 ML Multipack Bottle IVPUSH ONE (13:34)
--- NOTE | 2019-12-26 14:04 | CT ---
CT chest Technique: Multiple axial sections were obtained from above the lung apices inferiorly through the lung bases. Intravenous contrast was utilized. Study performed as a pulmonary angiogram protocol. Findings: Pulmonary arteries are well opacified. No filling defects are seen to indicate pulmonary embolism. Aorta shows no aneurysm or dissection. Mediastinum shows no adenopathy. No pericardial thickening is seen. Visualized upper abdominal structures shows no discrete abnormality. Lungs are clear with no acute parenchymal change. No pleural effusions are seen. No pneumothorax is identified. Bone window settings were reviewed which shows no acute osseous finding. Impression: 1. No findings of pulmonary embolism. 2. Nothing acute is appreciated on CT study of the chest. Diagnostic code #1 This report was dictated in MDT
== END 2019-12-26 14:48 | disposition home or self-care (01) ==
LOC: MW.ED 12:09
DX: R07.89 Other chest pain (principal); E66.9 Obesity, unspecified; Z68.41 Body mass index [BMI] 40.0-44.9, adult; Z79.899 Other long term (current) drug therapy
CPT/HCPCS: 36415; 71275; 80053; 84484; 84703; 85025; 93005; 99285; J7030; Q9967; 99283

== ENCOUNTER 2020-04-04 09:14 | Emergency (ER) | payer SELFPAY ==
--- NOTE | 2020-04-04 09:49 | EDM.PDOC ---
ED HPI GENERAL MEDICAL PROBLEM - General Chief Complaint: General Stated Complaint: INFECTION IN MOUTH Time Seen by Provider: 04/04/20 09:16 Source of Information: Reports: Patient History Limitations: Reports: No Limitations - History of Present Illness INITIAL COMMENTS - FREE TEXT/NARRATIVE: 29-year-old female no past medical history presenting with dental pain. She reports a 4-day history of pain to the hard palate and the gums surrounding the upper teeth. She has a history of acute necrotizing ulcerative gingivitis and is concerned that she has this again. No self treatment prior to arrival. She has not seen a dentist in several years. She denies any facial swelling, neck stiffness, fever, chills, nausea, vomiting, difficulty speaking, swallowing, or handling her secretions. Past medical history: Reviewed, no additional pertinent history. Surgical history: Reviewed in system, no additional pertinent history. Social history: Reviewed in system, no additional pertinent history. Family history: Reviewed in system, no additional pertinent history. PHYSICAL EXAM Vital signs reviewed. Nursing notes reviewed. Constitutional: Awake, alert, non-distressed. Head: Normocephalic, atraumatic. Eyes: EOMI, conjunctiva normal, no discharge, no scleral icterus. Ears, Nose, Throat: External ears and nose normal, moist oral mucosa. Overall poor dentition. The gingiva are inflamed and there is some minor amount of bleeding but there is no purulent drainage or no convincing evidence of trench mouth. Floor the mouth is soft. Uvula is midline, no intraoral swelling or fluctuance appreciated. No lesions or ulcerations, no evidence of ikah-tcwg-bat-mouth. Neck: Supple, full range of motion. Cardiovascular: 2+ radial pulse, capillary refill less than 2 seconds. Pulmonary: normal work of breathing, no accessory muscle use. Musculoskeletal: No deformities. Integumentary: Appropriate color for ethnicity, warm, dry, no pallor or jaundice, no rash. No palmar lesions. Neurologic: Alert, answering questions appropriately, normal speech, no facial droop, moving all extremities well. Psychiatric: Appropriate mood and affect, normal thought process. Oral/Mouth Pain Score (Numeric/FACES): 8 - Related Data Allergies Allergy/AdvReac Type Severity Reaction Status Date / Time No Known Allergies Allergy Verified 04/04/20 09:23 Home Meds: Home Meds Montelukast [Singulair] 10 mg PO DAILY #30 tab 12/26/19 [Rx] Acetaminophen [Acetaminophen Extra Strength] 500 - 1,000 mg PO Q6H PRN #30 tablet 04/04/20 [Rx] Amoxicillin/Potassium Clav [Augmentin 875-125 Tablet] 1 each PO BID 10 Days #20 tablet 04/04/20 [Rx] Chlorhexidine Gluconate [Chlorhexidine Gluconate 0.12% Rinse] 118 ml MM QID 10 Days #1 bottle 04/04/20 [Rx] Ibuprofen 400 mg PO Q6H PRN #30 tablet 04/04/20 [Rx] Past Medical History HEENT History: Reports: None Cardiovascular History: Reports: None Respiratory History: Reports: None Gastrointestinal History: Reports: GERD Genitourinary History: Reports: None Musculoskeletal History: Reports: Back Pain, Chronic Neurological History: Reports: None Psychiatric History: Reports: Anxiety, Depression Endocrine/Metabolic History: Reports: Obesity/BMI 30+ Hematologic History: Reports: None Immunologic History: Reports: None Oncologic (Cancer) History: Reports: None Dermatologic History: Reports: None - Infectious Disease History Infectious Disease History: Reports: None - Past Surgical History Head Surgeries/Procedures: Reports: None GI Surgical History: Reports: Hernia Repair/Other Female Surgical History: Reports: Section Social & Family History - Family History Family Medical History: Noncontributory - Caffeine Use Caffeine Use: Reports: Coffee - Recreational Drug Use Recreational Drug Use: No ED ROS GENERAL - Review of Systems Review Of Systems: See Below ED EXAM, GENERAL - Physical Exam Exam: See Below Course - Vital Signs Text/Narrative:: Considered acute gingivitis, cnoh-xwej-jvr-mouth, pulpitis, periapical abscess, deep space infection, Gal's angina, etc. the gingiva are overgrown and inflamed but there is no evidence of purulent drainage or a bacterial infection on my exam. Exam is not consistent with smjk-ecxn-rkc-mouth/coxsackie. She is breathing comfortably and does not appear systemically ill or toxic. Neck is supple. No evidence of an abscess. Patient is to follow-up with a dentist. Will prescribe a course of Augmentin and chlorhexidine rinse along with Tylenol and Motrin. I instructed her how to use the chlorhexidine rinse and encouraged frequent flossing. Plan: Patient is stable to discharge home with outpatient dental clinic follow- up. Strict emergency department return precautions were provided, patient indicated understanding. All questions were answered prior to departure. Disc harged in good condition. Last Recorded V/S: Last Vital Signs Temp 36.1 C 04/04/20 09:20 Pulse 94 04/04/20 09:20 Resp 18 04/04/20 09:20 BP 129/76 04/04/20 09:20 Pulse Ox 98 04/04/20 09:20 Departure - Departure Time of Disposition: 09:48 Disposition: Home, Self-Care 01 Condition: Good Clinical Impression: Pain of gingiva - Discharge Information *PRESCRIPTION DRUG MONITORING PROGRAM REVIEWED*: Not Applicable *COPY OF PRESCRIPTION DRUG MONITORING REPORT IN PATIENT TYRON: Not Applicable Prescriptions: Acetaminophen [Acetaminophen Extra Strength] 500 - 1,000 mg PO Q6H PRN #30 tablet PRN Reason: Pain (Mild 1-3) Amoxicillin/Potassium Clav [Augmentin 875-125 Tablet] 1 each PO BID 10 Days #20 tablet Chlorhexidine Gluconate [Chlorhexidine Gluconate 0.12% Rinse] 118 ml MM QID 10 Days #1 bottle Ibuprofen 400 mg PO Q6H PRN #30 tablet PRN Reason: Pain (Mild 1-3) Instructions: Preventive Dental Care, Adult Forms: ED Department Discharge Additional Instructions: Take your antibiotics as prescribed. You need to follow-up with a dental clinic in the next 1 to 2 weeks for a dental screening examination and preventative treatment. Continue flossing twice daily. Use the antibiotic rinse 4 times daily. Come back to the ER if you develop worsening pain, facial swelling, fever, difficulty breathing or swallowing or moving her neck, or any other new or concerning symptoms. Thank you for choosing the [facility] emergency department in [place] for your medical needs today. It was a pleasure caring for you. The following information is given to patients seen in the emergency department who are being discharged. This information is to outline your options for follow-up care. We provide all patients seen in our emergency department with a follow-up referral. The need for follow-up, as well as the timing and circumstances, are variable depending upon the specifics of your emergency department visit. If you don't have a primary care physician on staff, we will provide you with a referral. We always advise you to contact your personal physician following an emergency department visit to inform them of the circumstance of the visit and for follow-up with them and/or the need for any referrals to a consulting specialist. The emergency department will also refer you to a specialist when appropriate. This referral assures that you have the opportunity for follow-up care with a specialist. All of these measure are taken in an effort to provide you with optimal care, which includes your follow-up. Under all circumstances we always encourage you to contact your private physician who remains a resource for coordinating your care. When calling for follow-up care, please make the office aware that this follow-up is from your recent emergency room visit. If for any reason you are refused follow-up, please contact the [facility] Emergency Department at and asked to speak to the emergency department charge nurse. If you do not have a primary care physician that is caring for you, you can contact these clinics below to set up an appointment to establish care: [facility] - Primary Care [address] [place] [id number] [facility] [address] [place] [id number] Sepsis Event Note (ED) - Evaluation Sepsis Screening Result: No Definite Risk - Focused Exam Vital Signs: Vital Signs Temp Pulse Resp BP Pulse Ox 04/04/20 09:20 36.1 C 94 18 129/76 98
== END 2020-04-04 09:59 | disposition home or self-care (01) ==
LOC: MW.ED 09:14
DX: K06.9 Disorder of gingiva and edentulous alveolar ridge, unspecified (principal); E66.9 Obesity, unspecified; Z68.41 Body mass index [BMI] 40.0-44.9, adult; Z79.899 Other long term (current) drug therapy
CPT/HCPCS: 99282

== ENCOUNTER 2021-09-18 09:34 | Emergency (ER) | payer SELFPAY ==
[2021-09-18 11:11] LABS: CORONAVIRUS COVID-19 NAA NEGATIVE (NEGATIVE); INFLUENZA A NAA POSITIVE (NEGATIVE); INFLUENZA B NAA NEGATIVE (NEGATIVE)
== END 2021-09-18 11:33 | disposition home or self-care (01) ==
LOC: MW.ED 09:34
DX: J10.1 Influenza due to other identified influenza virus with other respiratory manifestations (principal); E66.9 Obesity, unspecified; Z68.41 Body mass index [BMI] 40.0-44.9, adult; Z20.822 Contact with and (suspected) exposure to COVID-19
CPT/HCPCS: 0240U; 99283

== ENCOUNTER 2022-05-31 08:00 | Emergency (ER) | payer SELFPAY | END 2022-05-31 10:10 | disposition home or self-care (01) | LOC: MW.ED 08:00 | DX: R40.0 Somnolence (principal); T50.995A Adverse effect of other drugs, medicaments and biological substances, initial encounter | CPT/HCPCS: 99283 ==

== ENCOUNTER 2022-07-19 09:55 | Emergency (ER) | payer SELFPAY ==
[2022-07-19] MEDS ORDERED: Sodium Chloride 0.9% 2.5 ML Syringe FLUSH PRN (10:57)
[2022-07-19] MEDS ORDERED: Sodium Chloride 0.9% 10 ML Syringe FLUSH PRN (10:57)
[2022-07-19] MEDS ORDERED: Ondansetron 4 MG/2 ML SDV IVPUSH ONE (10:58)
[2022-07-19] MEDS ORDERED: Ketorolac 30 MG/ML SDV IVPUSH ONE (10:58)
[2022-07-19] MEDS ORDERED: Sodium Chloride 0.9% 1,000 ML IV ONE (10:58)
[2022-07-19 11:01] LABS: CORONAVIRUS COVID-19 NAA NEGATIVE (NEGATIVE); INFLUENZA A NAA NEGATIVE (NEGATIVE); INFLUENZA B NAA NEGATIVE (NEGATIVE)
[2022-07-19 11:50] LABS: CARBON DIOXIDE,CO2 23.8 mmol/L (21.0-32.0); POTASSIUM,K 3.6 mmol/L (3.5-5.1)
== END 2022-07-19 13:20 | disposition home or self-care (01) ==
LOC: MW.ED 09:55
DX: B34.9 Viral infection, unspecified (principal); R20.0 Anesthesia of skin; R20.2 Paresthesia of skin; R51.9 Headache, unspecified; E66.9 Obesity, unspecified; Z68.37 Body mass index [BMI] 37.0-37.9, adult; Z86.16 Personal history of COVID-19; Z20.822 Contact with and (suspected) exposure to COVID-19
CPT/HCPCS: 0240U; 36415; 70450; 71045; 72125; 80053; 83735; 84484; 85025; 85610; 87651; 93005; 96361; 96374; 96375; 99284; J1885; J2405; J3490; J7030

== ENCOUNTER 2022-10-07 10:12 | Emergency (ER) | payer SELFPAY ==
[2022-10-07] MEDS ORDERED: Orphenadrine 60 MG/2 ML Inj IM STA (10:40)
== END 2022-10-07 12:56 | disposition home or self-care (01) ==
LOC: MW.ED 10:12
DX: R07.89 Other chest pain (principal); K21.9 Gastro-esophageal reflux disease without esophagitis; E66.9 Obesity, unspecified; Z68.35 Body mass index [BMI] 35.0-35.9, adult; Z86.16 Personal history of COVID-19; Z79.899 Other long term (current) drug therapy
CPT/HCPCS: 71101; 96372; 99284; J2360; 99283

== ENCOUNTER 2022-10-12 05:46 | Emergency (ER) | payer SELFPAY ==
[2022-10-12] MEDS ORDERED: oxyCODONE 5 MG Tab PO ONE (06:06)
== END 2022-10-12 07:55 | disposition home or self-care (01) ==
LOC: MW.ED 05:46
DX: S20.212A Contusion of left front wall of thorax, initial encounter (principal); K21.9 Gastro-esophageal reflux disease without esophagitis; E66.9 Obesity, unspecified; Z68.30 Body mass index [BMI] 30.0-30.9, adult; Z79.899 Other long term (current) drug therapy; Z86.16 Personal history of COVID-19; W18.30XA Fall on same level, unspecified, initial encounter
CPT/HCPCS: 71250; 99285; A9270; 99283

== ENCOUNTER 2022-12-12 19:37 | Emergency (ER) | payer SELFPAY | END 2022-12-12 20:02 | disposition left against medical advice (07) | LOC: MW.ED 19:37 | DX: Z53.21 Procedure and treatment not carried out due to patient leaving prior to being seen by health care provider (principal) ==

== ENCOUNTER 2023-01-04 07:55 | Emergency (ER) | payer OTHER ==
[2023-01-04] MEDS ORDERED: Morphine 4 MG/ML Syringe IVPUSH ONE (08:16)
[2023-01-04 08:26] LABS: APPEARANCE,URINE CLOUDY; BILIRUBIN,URINE NEGATIVE (NEGATIVE); COLOR,URINE YELLOW; GLUCOSE,URINE NEGATIVE (NEGATIVE); KETONES,URINE TRACE mg/dL (NEGATIVE); LEUKOCYTE ESTERASE,URINE TRACE (NEGATIVE); NITRITE,URINE NEGATIVE (NEGATIVE); OCCULT BLOOD,URINE NEGATIVE (NEGATIVE); PH,URINE 5.5 (5.0-8.0); PROTEIN,URINE TRACE mg/dL (NEGATIVE); UROBILINOGEN,URINE 0.2 EU/dL (<2.0)
[2023-01-04 08:28] LABS: BASOPHILS PERCENT AUTO 0.1 % (0.0-1.5); EOSINOPHILS ABSOLUTE AUTO 0.1 K/uL (0.0-0.7); EOSINOPHILS PERCENT AUTO 0.7 % (0.0-7.0); HEMATOCRIT 45.6 % (36.0-46.0); HEMOGLOBIN 15.6 g/dL (12.0-16.0); LYMPHOCYTES ABSOLUTE AUTO 0.6 K/uL (0.6-2.4); LYMPHOCYTES PERCENT AUTO 4.7 % (16.0-40.0); MEAN CORPUSCULAR HEMOGLOBIN 30.6 pg (27.0-32.0); MEAN CORPUSCULAR HGB CONC 34.2 g/dL (31.0-37.0); MEAN CORPUSCULAR VOLUME 89.4 fL (80.0-98.0); MONOCYTES ABSOLUTE AUTO 0.6 K/uL (0.0-0.8); MONOCYTES PERCENT AUTO 5.3 % (0.0-15.0); NEUTROPHILS ABSOLUTE AUTO 10.5 K/uL (1.4-5.7); NEUTROPHILS PERCENT AUTO 89.2 % (48.0-80.0); NRBC ABSOLUTE 0 K/uL; PLATELET COUNT,PLT 221 K/uL (150-400); WHITE BLOOD CELL COUNT,WBC 11.75 K/uL (4.0-11.0)
[2023-01-04] MEDS ORDERED: Lactated Ringers 1,000 ML IV SCH ×2 (08:30→09:15)
[2023-01-04 08:33] LABS: AMORPHOUS SEDIMENT,URINE MODERATE (NEGATIVE); BACTERIA,URINE 2+ (NEGATIVE); EPITHELIAL CELLS,URINE MANY (NONE-FEW); MUCUS,URINE HEAVY (NONE-MOD); RBC,URINE 0-2 (0-2/HPF)
[2023-01-04 08:39] LABS: INR 0.94 (0.86-1.11); PTT,PARTIAL THROMBOPLSTIN TIME 25.6 SEC (23.9-30.7)
[2023-01-04 09:02] LABS: A/G RATIO 1.1 (0.9-1.6); ALBUMIN 3.5 g/dL (3.4-5.0); BILIRUBIN TOTAL 0.5 mg/dL (0.2-1.0); CALCIUM 8.8 mg/dL (8.5-10.1); CARBON DIOXIDE,CO2 23.1 mmol/L (21.0-32.0); CREATININE 0.8 mg/dL (0.6-1.0); EST CRCL DRUG DOSING (CG) 71.17 mL/min; POTASSIUM,K 3.3 mmol/L (3.5-5.1); PROTEIN TOTAL,TP 6.8 g/dL (6.4-8.2)
[2023-01-04] MEDS ORDERED: Iopamidol 755 MG/ML 500 ML Multipack Bottle IVPUSH ONE (11:05)
[2023-01-04] MEDS ORDERED: Haloperidol Lactate 5 MG/ML SDV IM ONE (11:47)
== END 2023-01-04 13:16 | disposition home or self-care (01) ==
LOC: MW.ED 07:55
DX: R10.84 Generalized abdominal pain (principal); R11.10 Vomiting, unspecified; R19.7 Diarrhea, unspecified; K21.9 Gastro-esophageal reflux disease without esophagitis; E66.9 Obesity, unspecified; Z68.35 Body mass index [BMI] 35.0-35.9, adult; Z86.16 Personal history of COVID-19; Z79.899 Other long term (current) drug therapy; Z98.890 Other specified postprocedural states
CPT/HCPCS: 74177; 80053; 81001; 83690; 84703; 85025; 85610; 85730; 87045; 87046; 87086; 87324; 87449; 87493; 87899; 96360; 96361; 96372; 99284; J1630; J7120; Q9967